=== PATIENT | male | born 1970 | race Caucasian/White ===

== ENCOUNTER → 2022-03-10 | Outpatient (CLI) | payer BC | END | disposition home or self-care (01) | LOC: RAH 08:36 | PROVIDERS: ATTEND Internal Medicine | DX: R11.2 Nausea with vomiting, unspecified (principal); R93.3 Abnormal findings on diagnostic imaging of other parts of digestive tract; Z93.4 Other artificial openings of gastrointestinal tract status; Z98.890 Other specified postprocedural states | CPT/HCPCS: 74240 ==

== ENCOUNTER → 2022-03-27 | Outpatient (CLI) | payer BC ==
[~2022-03-27] MED LIST: METO50TA9 PO; SUCR1ORA15 PO
== END | disposition home or self-care (01) ==
LOC: DAH 10:00 → EDSTATUS 03-29 14:15
PROVIDERS: ATTEND Surgery
DX: K28.7 Chronic gastrojejunal ulcer without hemorrhage or perforation (principal)
CPT/HCPCS: 87426